=== PATIENT | female | born 1995 | race Caucasian/White ===

== ENCOUNTER 2018-11-02 18:02 | Emergency (ER) | payer OTHER ==
[~2018-11-02] VITALS: Wt 63.1 kg
[2018-11-02 18:05] VITALS: BP 133/69; PULSE 113; RESP 18
[2018-11-02] MEDS ORDERED: ACETAMINOPHEN 325 MG TAB PO STA (19:09)
[2018-11-02] MEDS ORDERED: CEPH-443 PO (20:32)
--- NOTE | 2018-11-02 21:01 | ERD ---
ER Documentation Chief Complaint Chief Complaint PELVIC PAIN X 1 WEEK 16 WEEKS PREG HPI This is a 22-year-old female with a history of hepatitis C and IV drug abuse, who presents at roughly 16 weeks with complaints of off and on lower abdominal pain for the past week. Admits to dysuria. Denies back pain, vaginal bleeding, vaginal pain, passing clots vaginally, hematuria, nausea, vomiting, diarrhea, constipation, hemoptysis, melena, hematochezia, dizziness, headache, lightheadedness. Patient states that she regularly has seen her [facility] doctor who is in [place]. Patient states that she has had an ultrasound of the past which has been normal. ROS All systems reviewed and are negative except as per history of present illness. Medications Home Meds Active Scripts Cephalexin* (Keflex*) 500 Mg Capsule, 500 MG PO BID for 7 Days, CAP Prov:SALAZAR LOYA PA-C 11/02/18 Allergies Allergies: Coded Allergies: No Known Drug Allergy (Verified Allergy, Unknown, 11/02/18) PMhx/Soc History of Surgery: No Anesthesia Reaction: No Hx Neurological Disorder: No Hx Respiratory Disorders: No Hx Cardiac Disorders: No Hx Psychiatric Problems: No Hx Miscellaneous Medical Probl: Yes (hep C, drug abuse) Hx Alcohol Use: No Hx Substance Use: No Hx Tobacco Use: No Smoking Status: Never smoker FmHx Family History: No diabetes Physical Exam Vitals Vital Signs Date Temp Pulse Resp B/P (MAP) Pulse Ox O2 O2 Flow FiO2 Time Delivery Rate 11/02/18 98.5 113 18 133/69 99 18:05 (90) Physical Exam Const: No acute distress Head: Atraumatic Eyes: Normal Conjunctiva ENT: Normal External Ears, Nose and Mouth. Neck: Full range of motion. No meningismus. Resp: Clear to auscultation bilaterally Cardio: Regular rate and rhythm, no murmurs Abd: Soft, , no peritoneal signs, no rigidity, no surgical abdomen, bowel sounds present all 4 quadrants, nontender light deep palpation all 4 quadrants, Kimble sign negative, no rebound tenderness, no tenderness at McBurney's point Back: No midline or flank tenderness Ext: No cyanosis, or edema Neur: Awake and alert Psych: Normal Mood and Affect Result Diagram: 12/29/18 1935 12/29/18 1934 Results 24 hrs Laboratory Tests Test 11/02/18 19:34 11/02/18 19:35 Prothrombin Time 13.7 Sec Prothrombin Time Ratio 1.1 INR International Normalized Ratio 1.04 Activated Partial Thromboplast Time 41.4 Sec Sodium Level 140 mmol/L Potassium Level 3.7 mmol/L Chloride Level 106 mmol/L Carbon Dioxide Level 27 mmol/L Anion Gap 7 Blood Urea Nitrogen 3 mg/dl Creatinine 0.42 mg/dl Est Glomerular Filtrat Rate mL/min > 60 mL/min Glucose Level 88 mg/dl Calcium Level 9.1 mg/dl Total Bilirubin 0.5 mg/dl Direct Bilirubin 0.00 mg/dl Indirect Bilirubin 0.5 mg/dl Aspartate Amino Transf (AST/SGOT) 197 IU/L Alanine Aminotransferase (ALT/SGPT) 210 IU/L Alkaline Phosphatase 80 IU/L Total Protein 6.7 g/dl Albumin 3.6 g/dl Globulin 3.10 g/dl Albumin/Globulin Ratio 1.16 White Blood Count 5.1 10^3/ul Red Blood Count 3.63 10^6/ul Hemoglobin 11.1 g/dl Hematocrit 32.0 % Mean Corpuscular Volume 88.2 fl Mean Corpuscular Hemoglobin 30.6 pg Mean Corpuscular Hemoglobin Concent 34.7 g/dl Red Cell Distribution Width 12.9 % Platelet Count 202 10^3/UL Mean Platelet Volume 10.4 fl Immature Granulocytes % 0.200 % Neutrophils % 62.8 % Lymphocytes % 30.9 % Monocytes % 6.1 % Eosinophils % 0.0 % Basophils % 0.0 % Nucleated Red Blood Cells % 0.0 /100WBC Immature Granulocytes # 0.010 10^3/ul Neutrophils # 3.2 10^3/ul Lymphocytes # 1.6 10^3/ul Monocytes # 0.3 10^3/ul Eosinophils # 0.0 10^3/ul Basophils # 0.0 10^3/ul Nucleated Red Blood Cells # 0.0 10^3/ul Urine Color YELLOW Urine Clarity SLIGHTLY CLOUDY Urine pH 7.0 Urine Specific [place]ork 1.020 Urine Ketones NEGATIVE mg/dL Urine Nitrite POSITIVE mg/dL Urine Bilirubin NEGATIVE mg/dL Urine Urobilinogen 2+ mg/dL Urine Leukocyte Esterase TRACE Shine/ul Urine Microscopic RBC 1 /HPF Urine Microscopic WBC 27 /HPF Urine Squamous Epithelial Cells FEW /HPF Urine Bacteria FEW /HPF Urine Mucus FEW /HPF Urine Hemoglobin NEGATIVE mg/dL Urine Glucose NEGATIVE mg/dL Urine Total Protein NEGATIVE mg/dl Current Medications Medications Dose Sig/Rui Start Time Status Last (Trade) Ordered Route PRN Stop Time Admin Dose Reason Admin 650 mg ONCE STAT 11/02/18 DC 11/02/18 Acetaminophen PO 19:09 19:35 (Tylenol 11/02/18 Tab) 19:12 Procedures/MDM EKG, MONITORS, & DIAGNOSTIC IMAGING: [place] [id number] Radiology Main Line: [phone] DIAGNOSTIC IMAGING REPORT Patient: NAHOMI ESPINOSA : 1995 Age: 22 Sex: F MR #: [id number] DOS: 11/02/18 190 Ordering MD: SALAZAR LOYA PA-C Location: [facility] Room/Bed: PROCEDURE: US OB CLINICAL INDICATION: Pelvic pain. TECHNIQUE: Multiple transabdominal sonographic images of the pelvis and gravid uterus were obtained. The images were reviewed on a PACS workstation. COMPARISON: None. FINDINGS: Gestation: Single viable intrauterine gestation. Cardiac activity: 161 beats per minute. Presentation: Breech and variable Placenta: Location: Anterior, grade 0-1 Appearance: No previa or abruption. Amniotic Fluid: Within normal limits with the maximum vertical pocket measuring 3.3 cm. Measurements: BPD = 3.29 cm, 16 weeks 2 days HC = 11.43 cm, 15 weeks 4 days AC = 10.33 cm, 16 weeks 2 days FL = 1.74 cm, 15 weeks 1 day Gestational Age: AUA estimated gestational age: 15 weeks 6 days LMP estimated gestational age: 15 weeks 3 days AUA estimated date of delivery: 04/20/2019 The EFW = 133 g, 60.7%ile. IMPRESSION: Single live intrauterine gestation of 15 weeks 6 days by ultrasound criteria. Estimated date of delivery of 04/20/2019. .Domingo Madrigal MD, Date Time Electronically viewed and signed by .Domingo Madrigal MD, on 11/02/2018 20:32 .T/ CC: SALAZAR LOYA PA-C [id number] LAB INTERPRETATION: CBC shows no evidence of hemorrhage or infection, mildly decreased hemoglobin of 11.1, mildly decreased hematocrit 32.0 Chemistry shows no evidence of significant electrolyte abnormalities or renal insufficiency Liver function test shows elevated AST of 197 and elevated ALT of 210 Coagulation study showed no concerning coagulopathy Lipase shows no evidence of acute pancreatitis Urinalysis remarkable for WBC, leukocyte esterase and nitrite urine culture pending HCG pending Patient refuses pelvic exam and wet mount in ed today blood type A + ER COURSE: The patient was given Tylenol The medication was well tolerated and the patient reports improvement in symptoms. The patient was stable throughout ED course. I kept the patient and/or family informed of laboratory and diagnostic imaging results throughout the emergency room course. The patient was promptly evaluated and a treatment plan was devised based on H&P and other data. This plan was discussed with the patient who agreed and had no further questions or concerns prior to discharge. MEDICAL DECISION MAKING: This is a 22 year-old female history of hep C and IV drug abuse, presents with some mild lower pelvic discomfort and dysuria times 1 week at roughly 16 weeks . Ultrasound was ordered to rule out placenta previa, placental abruption, premature rupture of brains and to check heart tones fetus. Patient is blood type A+ and does not require any RhoGam. CBC is unremarkable with no signs of anemia or hemorrhage. Patient is hemodynamically stable. Urinalysis is remarkable for nitrite, leukocyte esterase, WBC. Will treat patient for UTI. It is possible that patient's lower pelvic pain has been due to UTI. CMP is also remarkable for an elevated AST and ALT. Given patient's history of hepatitis C this is likely the cause of the elevation. Advised patient that I would like to do a right upper quadrant ultrasound to rule out any gallbladder etiology. Given the patient has no right upper quadrant pain I doubt cholecystitis, colitis cholelithiasis, among others. Prior to receiving ultrasound findings back patient had decided to leave AGAINST MEDICAL ADVICE. Discussed with patient the risks associated with leaving AGAINST MEDICAL ADVICE including , demise, premature rupture membrane, placenta previa, placenta abruption, among other emergencies. Patient also has refused a pelvic examination as well as wet mount in the emergency department today. HCG was also not received prior to her leaving AMA. Patient has the capacity to decide to leave AMA for herself. Patient has no neurolo gical deficit. Ultrasound shows a closed competent cervix with no appearance of central previa or abruption. Ultrasound shows a single intrauterine gestation with a heart rate of 161 bpm. Advised patient follow-up with her [facility] specialist in the next 48 hours. Patient was sent home with antibiotic for UTI. At this time there is no [facility] emergency. Return to ED with any worsening symptoms. DISPOSITION PLAN: We discussed follow up with the patient's primary care doctor within 24 to 48 h ours. Patient counseled regarding my diagnostic impression and care plan. SPECIALIST FOLLOW UP RECOMMENDED: obgyn Patient has been advised to follow up with primary care in 1-2 days. Disclaimer: Inadvertent spelling and grammatical errors are likely due to EHR/dictation software use and do not reflect on the overall quality of patient care. Also, please note that the electronic time recorded on this note does not necessarily reflect the actual time of the patient encounter. Departure Diagnosis: Primary Impression: Pelvic pain during in second trimester, antepartum Additional Impression: UTI (urinary tract infection) Urinary tract infection type: site unspecified Hematuria presence: without hematuria Qualified Codes: N39.0 - Urinary tract infection, site not specified Condition: Stable Patient Instructions: Comfort Tips During , Understanding Urinary Tract Infections (UTIs), : Your Second Trimester Changes, Adapting to : Second Trimester Referrals: COMMUNITY CLINICS YOU HAVE RECEIVED A MEDICAL SCREENING EXAM AND THE RESULTS INDICATE THAT YOU DO NOT HAVE A CONDITION THAT REQUIRES URGENT TREATMENT IN THE EMERGENCY DEPARTMENT. FURTHER EVALUATION AND TREATMENT OF YOUR CONDITION CAN WAIT UNTIL YOU ARE SEEN IN YOUR DOCTORS OFFICE WITHIN THE NEXT 1-2 DAYS. IT IS YOUR RESPONSIBILITY TO MAKE AN APPOINTMENT FOR FOLOW-UP CARE. IF YOU HAVE A PRIMARY DOCTOR --you should call your primary doctor and schedule an appointment IF YOU DO NOT HAVE A PRIMARY DOCTOR YOU CAN CALL OUR PHYSICIAN REFERRAL HOTLINE AT IF YOU CAN NOT AFFORD TO SEE A PHYSICIAN YOU CAN CHOSE FROM THE FOLLOWING FORMERLY [facility] [address] [facility]. [facility] [address] [facility]. [facility] [address] [facility]. [facility] [phone] [facility]. [facility] [address] [facility] [address] [place] [facility] [place] [address] [facility] [address] [place] [address] OFFICE FAX , [facility] [address] [place] [address] [address] [facility] [address] [place] [address] [address] MORIN, [facility] [address] [facility], [address] [address] [address] [facility] [address] [place] [address] [facility] [address] [place] [address] [facility] [address] - ABDIAS COLEMAN [address], [place] [address] [address] MANZANO, [facility] [address] [facility]. [address], [place] [address] [address] [facility] [address] [place], [place] [id number] Additional Instructions: Patient has left AGAINST MEDICAL ADVICE. Patient was advised to follow-up with her [facility] specialist in the next 48 hours. It was discussed with patient that I do not advise her leaving at this time. SALAZAR LOYA PA-C Nov 02, 2018 21:01
== END 2018-11-02 20:41 | disposition left against medical advice (07) ==
LOC: FTE 18:02
DX: O26.892 Other specified pregnancy related conditions, second trimester (principal); R10.2 Pelvic and perineal pain; O23.42 Unspecified infection of urinary tract in pregnancy, second trimester; Z3A.15 15 weeks gestation of pregnancy
CPT/HCPCS: 76805; 80053; 80307; 81001; 84702; 85025; 85610; 85730; 86900; 86901; 87086